=== PATIENT | male | born 1965 | race Caucasian/White ===

== ENCOUNTER 2018-10-11 18:10 | Emergency (ER) | payer OTHER ==
[~2018-10-11] VITALS: Ht 175.3 cm; Wt 116.6 kg
[2018-10-11 18:24] VITALS: Ht 175.3 cm; Wt 116.6 kg
[2018-10-11 20:30] VITALS: BP 159/101
== END 2018-10-11 20:30 | disposition home or self-care (01) ==
LOC: ED 18:10
DX: S86.912A Strain of unspecified muscle(s) and tendon(s) at lower leg level, left leg, initial encounter (principal); Z88.0 Allergy status to penicillin; X58.XXXA Exposure to other specified factors, initial encounter; Y93.89 Activity, other specified; Y92.89 Other specified places as the place of occurrence of the external cause; Y99.8 Other external cause status